=== PATIENT | female | born 1965 | race Two or more races ===

== ENCOUNTER 2017-07-15 17:30 | Emergency (ER) | payer OTHER ==
[2017-07-15] MEDS ORDERED: IBUPROFEN 600 MG TABLET (FP) PO ONE (17:40)
--- NOTE | 2017-07-15 17:40 | PDOC ---
Rapid Medical Evaluation Chief Complaint: Cold Symptoms Medical Evaluation: 07/15/17 17:39 I have performed a brief in-person evaluation of this patient. The patient presents with a chief complaint of: fever, cough x 3 days, headache when coughing, took tylenol at 1130am Pertinent physical exam findings: temp 103F, lungs ctab I have ordered the following: motrin The patient will proceed to the ED for further evaluation. Discharge Disposition - Diagnosis Cough - Referrals - Patient Instructions - Post Discharge Activity
[2017-07-15 17:41] VITALS: BP 163/91; BMI 29.2
[2017-07-15] MEDS ORDERED: ACETAMINOPHEN 325 MG TABLET (FP) PO ONE (18:16)
[2017-07-15] MEDS ORDERED: ACETAMINOPHEN 325 MG TABLET (FP) ONE (18:17)
--- NOTE | 2017-07-15 18:30 | PDOC ---
History of Present Illness - General Chief Complaint: Cold Symptoms Stated Complaint: FEVER/HEADACHE Time Seen by Provider: 07/15/17 17:45 History Source: Patient Exam Limitations: Language Barrier (Adult daughter provided spaish translation) - History of Present Illness Initial Comments: CHIEF COMPLAINT: 51 y/o febrile, tachycardic female c/o flu like symptoms x 3 days. HISTORY OF PRESENT ILLNESS: The patient c/o headache, body aches, fever, chills and dry cough x 3 days. She has been taking tylenol intermittently for symptoms with last dose this morning. She denies earache, sore throat, n/v/d, CP, SOB, abd pain. Vital signs on arrival are notable for pulse of 105 secondary to temp of 103.1. REVIEW OF SYSTEMS: GENERAL/CONSTITUTIONAL: + fever/chills. +body aches. No weakness. No weight change. HEAD, EYES, EARS, NOSE AND THROAT: No change in vision. No ear pain or discharge. No sore throat. CARDIOVASCULAR: No chest pain or shortness of breath. RESPIRATORY: +dry cough. No wheezing or hemoptysis. GASTROINTESTINAL: No abd pain, nausea, vomiting, diarrhea. GENITOURINARY: No dysuria, frequency, or change in urination. MUSCULOSKELETAL: No joint or muscle swelling or pain. No neck or back pain. SKIN: No rash or easy bruising. NEUROLOGIC: No headache, vertigo, loss of consciousness, or loss of sensation. PHYSICAL EXAM: GENERAL: The patient is awake, alert, and fully oriented, in no acute distress. SHe is non toxic but ill appearing. INtermittent dry cough. HEAD: Normal with no signs of trauma. ENT: Pupils equal, round and reactive to light, extraocular movements intact, sclera anicteric, conjunctiva clear. Nose is erythematous. No tonsilar edema or exudate. uvula midline. LUNGS: Clear to auscultation bilaterally. Normal excursion. No respiratory distress or use of accessory muscles. CV: RRR, S1/S2, no MRG. Cap refill < 2 sec. ABDOMEN: Soft, non-distended, non-tender even to deep palpation, no hepatomegaly or splenomegaly, no masses. EXTREMITIES: Normal range of motion, no edema. NEUROLOGICAL: Normal speech, normal gait. CN II-XII grossly intact. SKIN: Warm, dry, normal turgor, no rashes or lesions noted. Past History - Past Medical History Allergies/Adverse Reactions: Allergies Allergy/AdvReac Type Severity Reaction Status Date / Time No Known Allergies Allergy Verified 07/15/17 17:53 Home Medications: Ambulatory Orders NK [No Known Home Medication] 07/15/17 COPD: No HTN: Yes - Suicide/Smoking/Psychosocial Hx Smoking History: Never smoked Have you smoked in the past 12 months: No Information on smoking cessation initiated: No Hx Alcohol Use: No Drug/Substance Use Hx: No Substance Use Type: None *Physical Exam - Vital Signs Last Vital Signs Temp Pulse Resp BP Pulse Ox 103.1 F H 105 H 20 163/91 99 07/15/17 17:37 07/15/17 17:37 07/15/17 17:37 07/15/17 17:37 07/15/17 17:37 ED Treatment Course - Medications Given in the ED: ED Medications Discontinued Medications Generic Name Dose Route Start Last Admin Trade Name Freq PRN Reason Stop Dose Admin Ibuprofen 600 mg 07/15/17 17:40 07/15/17 17:50 Motrin - PO 07/15/17 17:41 600 mg ONCE ONE Administration Medical Decision Making - Medical Decision Making A/P: 51 y/o female with flu like symptoms. Plan is as follows: 1. PO motrin 2. PO tylenol 3. REassess The patient's temp and HR have decreased. Will discharge to home with supportive care instructions as she is out of the tamiflu window. instructed her to return to the ER wiht any worsening or concerning symptoms. The patient verbalizes understanding of all instructions, has no further questions and is awaiting discharge. *DC/Admit/Observation/Transfer Diagnosis at time of Disposition: Cough, Influenza - Discharge Dispostion Disposition: HOME Condition at time of disposition: Improved - Referrals - Patient Instructions Printed Discharge Instructions: DI for Influenza -- Adult Additional Instructions: Discharge Instructions: -You have the flu -Alternate between 500mg of Tylenol and 600mg of Motrin every 3 hours for fever -Drink plenty of fluids -Get lots of rest -Return to the ER with any worsening or concerning symptoms. Instrucciones de descarga: -Usted tiene la gripe -Alterna entre 500 mg de Tylenol y 600 mg de Motrin cada 3 horas para la fiebre -Beber mucho lquido -Descansa mucho -Volver a la ximena de emergencias con cualquier empeoramiento o sntomas. Print Language: ARMENIAN - Post Discharge Activity
[2017-07-15 19:20] VITALS: PULSE 90; TEMP 101
== END 2017-07-15 19:20 | disposition home or self-care (01) ==
LOC: JERFT 17:30
DX: J11.1 Influenza due to unidentified influenza virus with other respiratory manifestations (principal)
CPT/HCPCS: 99281-25